=== PATIENT | female | born 2000 | race American Indian/Alaskan Native ===

== ENCOUNTER 2022-02-02 19:55 | Emergency (ER) | payer OTHER | END 2022-02-03 02:00 | disposition left against medical advice (07) | LOC: ED 19:55 | DX: O03.9 Complete or unspecified spontaneous abortion without complication (principal); Z53.21 Procedure and treatment not carried out due to patient leaving prior to being seen by health care provider; Z3A.11 11 weeks gestation of pregnancy ==

== ENCOUNTER 2022-03-20 08:56 | Emergency (ER) | payer OTHER ==
[2022-03-20 10:51] LABS: Hematocrit 38.3 % (30.3-42.9); Hemoglobin 13.1 gm/dl (10.1-14.3); Mean Corpuscular HGB Conc 34 % (30-34); Mean Corpuscular Volume 98 fl (79-97); Platelet Count 171 K/mm3 (140-440); Red Blood Count 3.89 M/mm3 (3.65-5.03); Red Cell Distribution Width 12.5 % (13.2-15.2)
[2022-03-20 11:08] LABS: Blood Urea Nitrogen 6 mg/dL (7-17); Calcium 9.7 mg/dL (8.4-10.2); Hemolysis Index 1
[2022-03-20 11:34] LABS: BUN/Creatinine Ratio 10
--- NOTE | 2022-03-20 12:42 | Emergency Department Report ---
ED Female HPI - General Chief complaint: Vaginal Bleeding Stated complaint: VAG BLEED DURING PREG WKS ? Time Seen by Provider: 03/20/22 12:39 Source: patient Mode of arrival: Ambulatory Limitations: No Limitations - Related Data Previous Rx's Medication Instructions Recorded Last Taken Type Amoxicillin [Trimox CAP] 500 mg PO BID #20 capsule 03/20/22 Unknown Rx Ondansetron [Zofran Odt] 4 mg PO Q8HR PRN #10 tab.rapdis 03/20/22 Unknown Rx Allergies Allergy/AdvReac Type Severity Reaction Status Date / Time No Known Allergies Allergy Verified 02/02/22 20:59 ED Review of Systems ROS: Stated complaint: VAG BLEED DURING PREG WKS ? Other details as noted in HPI Comment: All other systems reviewed and negative ED Past Medical Hx - Past Medical History Previous Medical History?: No - Surgical History Past Surgical History?: Yes Additional Surgical History: Cyst removal left hand - Family History Family history: no significant - Social History Smoking Status: Never Smoker Substance Use Type: Alcohol - Medications Home Medications: Home Medications Medication Instructions Recorded Confirmed Last Taken Type Amoxicillin [Trimox CAP] 500 mg PO BID #20 capsule 03/20/22 Unknown Rx Ondansetron [Zofran Odt] 4 mg PO Q8HR PRN #10 tab.rapdis 03/20/22 Unknown Rx ED Physical Exam - General Limitations: No Limitations General appearance: alert, in no apparent distress - Head Head exam: Present: atraumatic, normocephalic - Eye Eye exam: Present: normal appearance - ENT ENT exam: Present: mucous membranes moist - Neck Neck exam: Present: normal inspection - Respiratory Respiratory exam: Present: normal lung sounds bilaterally. Absent: respiratory distress - Cardiovascular Cardiovascular Exam: Present: regular rate, normal rhythm. Absent: systolic murmur, diastolic murmur, rubs, gallop - GI/Abdominal GI/Abdominal exam: Present: soft, normal bowel sounds - Extremities Exam Extremities exam: Present: normal inspection - Back Exam Back exam: Present: normal inspection - Neurological Exam Neurological exam: Present: alert, oriented X3 - Psychiatric Psychiatric exam: Present: normal affect, normal mood - Skin Skin exam: Present: warm, dry, intact, normal color. Absent: rash ED Course Vital Signs 03/20/22 09:12 Temperature 98.9 F Pulse Rate 64 Respiratory 14 Rate Blood Pressure 128/85 [Right] O2 Sat by Pulse 100 Oximetry ED Medical Decision Making - Lab Data Result diagrams: 03/20/22 09:55 03/20/22 09:55 - Radiology Data Radiology results: report reviewed, image reviewed See report - Medical Decision Making Labs 03/20/22 03/20/22 03/20/22 09:55 09:55 09:55 WBC 4.5 RBC 3.89 Hgb 13.1 Hct 38.3 MCV 98 H MCH 34 H MCHC 34 RDW 12.5 L Plt Count 171 Sodium 137 Potassium 4.5 Chloride 101.4 Carbon Dioxide 24 Anion Gap 16 BUN 6 L Creatinine 0.6 Estimated GFR > 60 BUN/Creatinine Ratio 10 Glucose 80 Calcium 9.7 HCG, Quant 00815 H Urine Color Urine Turbidity Urine pH Ur Specific [place] Urine Protein Urine Glucose (UA) Urine Ketones Urine Blood Urine Nitrite Ur Reducing Substances Urine Bilirubin Urine Ictotest Urine Urobilinogen Ur Leukocyte Esterase Urine WBC (Auto) Urine RBC (Auto) U Epithel Cells (Auto) Urine Bacteria (Auto) Hyaline Casts Urine Mucus Blood Type Antibody Screen Screen Ord Rhogam Gestat Weeks 03/20/22 03/20/22 14:10 Unknown WBC RBC Hgb Hct MCV MCH MCHC RDW Plt Count Sodium Potassium Chloride Carbon Dioxide Anion Gap BUN Creatinine Estimated GFR BUN/Creatinine Ratio Glucose Calcium HCG, Quant Urine Color Yellow Urine Turbidity Clear Urine pH 5.0 Ur Specific [place] 1.010 Urine Protein <15 mg/dl Urine Glucose (UA) Negative Urine Ketones Negative Urine Blood Negative Urine Nitrite Negative Ur Reducing Substances Not Reportable Urine Bilirubin Negative Urine Ictotest Not Reportable Urine Urobilinogen 0.0 Ur Leukocyte Esterase 2 Urine WBC (Auto) 19.0 H Urine RBC (Auto) 22.0 U Epithel Cells (Auto) 39.0 H Urine Bacteria (Auto) 1+ Hyaline Casts 1 Urine Mucus Few Blood Type A NEGATIVE Antibody Screen Negative Screen Negative Ord Rhogam Gestat Weeks >=11 Vital Signs 03/20/22 09:12 Temperature 98.9 F Pulse Rate 64 Respiratory 14 Rate Blood Pressure 128/85 [Right] O2 Sat by Pulse 100 Oximetry Labs noted. Patient is Rh- she will need to get RhoGAM. It has been ordered. RN to administer. Ultrasound noted. Beta quant noted. UA noted. Patient given a gram of Rocephin IM. She will be sent home on amoxicillin twice daily. Patient understands she needs to have follow-up lab work in 48 hours and IRRIGATOR. On discharge exam patient is ambulatory, restless for having to wait so long in the ER but in no acute distress. She states she is hungry. Significant other at the bedside. - Differential Diagnosis RO AB/ECTOPIC Critical care attestation.: If time is entered above; I have spent that time in minutes in the direct care of this critically ill patient, excluding procedure time. ED Disposition Clinical Impression: UTI (urinary tract infection) Qualifiers: Weeks of gestation: unspecified Qualified Code(s): Z34.90 - Encounter for colvin pervision of normal , unspecified, unspecified trimester Disposition: HOME / SELF CARE / HOMELESS Is pt being admited?: No Does the pt Need Aspirin: No Condition: Stable Instructions: Urinary Tract Infection, Adult Additional Instructions: TYLENOL FOR PAIN Avoid drugs and alcohol Take antibiotic until gone. Follow-up with your IRRIGATOR in 48 hours for recheck Take this paperwork with you to the office. I have given you referral below should you need it Prescriptions: Amoxicillin [Trimox CAP] 500 mg PO BID #20 capsule Ondansetron [Zofran Odt] 4 mg PO Q8HR PRN #10 tab.rapdis PRN Reason: Vomiting Referrals: INDER RUTLEDGE MD [Primary Care Provider] - 3-5 Days ODILON ACE MD [Staff Physician] - 3-5 Days Forms: Work/School Release Form(ED) Time of Disposition: 16:54
[2022-03-20 16:07] LABS: Bacteria,Urine 1+ /HPF (Negative); Hyaline Casts,Urine 1 /LPF; Mucus,Urine FEW /HPF
[2022-03-20 16:22] LABS: Bilirubin,Urine Negative (Negative); Blood,Urine Negative (Negative); Color,Urine Yellow (Yellow); Protein,Urine <15 mg/dL mg/dL (Negative)
[2022-03-20] MEDS ORDERED: LIDOCAINE-MPF (1%) 10 MG/1 ML VIAL 5 ML INFILTRATI ONE (16:26)
[2022-03-20] MEDS ORDERED: ONDANSETRON 4 MG ODT TAB PO ONE (17:03)
--- NOTE | 2022-03-20 17:09 | Ultrasound Report ---
ULTRASOUND OBSTETRIC INDICATION / CLINICAL INFORMATION: VAG BLEED PREG. TECHNIQUE: Transabdominal and Transvaginal. COMPARISON: None available. FINDINGS: GESTATIONAL SAC: Well-defined oval shape and intrauterine in location. YOLK SAC: No significant abnormality. EMBRYO/FETUS: No significant abnormality. - [place]-Rump Length = 1.0 cm = 7 weeks, 0 day(s). - Heart Rate, beats per minute (if present) = 134 ADNEXA: No significant abnormality. FREE FLUID: None. ADDITIONAL FINDINGS: None. IMPRESSION: 1. Single, living intrauterine with estimated sonographic age of 7 weeks, 0 day(s). Signer Name: Arnulfo Villalpando MD Signed: 03/20/2022 5:04 PM Workstation Name: [email or web address]
[2022-03-20 18:38] VITALS: BP 102/59
--- NOTE | 2022-03-21 00:30 | Ultrasound Report ---
US OB transvaginal INDICATION / CLINICAL INFORMATION: VAG BLEED PREG beta hCG not specified. COMPARISON: None available. TECHNIQUE: Using a endovaginal probe, multiple grayscale, color Doppler, and spectral Doppler images of the uterus and fetus were captured and stored. FINDINGS: Clinical estimated gestational age based on LMP of 11/19/2021 is 17 weeks 2 days. A single intrauterine gestational sac is demonstrated containing a pole, mean crown-rump length of 10 mm corresponding to an estimated gestational age of 7 weeks 1 day. EDC 11/05/2022. heart rate is 135 bpm. There is a small amount of free fluid along the inferior margin of the sac suggesting small subchorio ike hemorrhage. This measures 1.8 x 1.1 x 0.8 cm. Urinary bladder not well distended. Small amount free fluid noted around the uterus. Right ovary measures 3.0 x 2.6 x 4.1 cm. Right ovary demonstrates no significant abnormality. Left ovary measures 2.1 x 1.0 x 2.0 cm. Left ovary demonstrates no significant abnormality. The uterus measures 8.9 x 5.1 x 5.4 cm. IMPRESSION: 1. Single living intrauterine gestation with estimated gestational age of 7 weeks 1 day, EDC 11/05/2022 . 2. Small subchorionic hemorrhage along the inferior margin of the gestational sac adjacent to the int ernal os of cervix. Signer Name: Jose Shoemaker II, MD Signed: 03/21/2022 12:25 AM Workstation Name: [id number]
== END 2022-03-20 18:37 | disposition home or self-care (01) ==
LOC: ED 08:56
DX: O23.41 Unspecified infection of urinary tract in pregnancy, first trimester (principal); O20.9 Hemorrhage in early pregnancy, unspecified; N39.0 Urinary tract infection, site not specified; Z3A.01 Less than 8 weeks gestation of pregnancy; Z98.890 Other specified postprocedural states
CPT/HCPCS: 36415; 76801; 76817; 80048; 81001; 84702; 85027; 85461; 86850; 86900; 86901; 87086; 96372; 99284; J0696; J2790; J3490; Q0162